=== PATIENT | male | born 1990 | race Caucasian/White ===

== ENCOUNTER 2023-09-22 11:54 | Inpatient (IN) | payer MEDICAID ==
[~2023-09-22] VITALS: Ht 182.9 cm; Wt 83.9 kg
[2023-09-22 11:56] VITALS: BP 122/72; PULSE 90; RESP 16; TEMP 97.1; O2SAT 98
[2023-09-22] MEDS ORDERED: IBUPROFEN 600 MG TAB PO ONE (13:00)
[2023-09-22 13:13] LABS: BASOPHILS % (AUTO) 0.3 % (0.0-2.0); EOSINOPHILS % (AUTO) 0.1 % (0.0-4.0); HEMATOCRIT 45.7 % (36-52); HEMOGLOBIN 15.5 g/dL (12.0-18.0); LYMPHOCYTES # (AUTO) 0.9 K/uL (2.0-11.5); LYMPHOCYTES % (AUTO) 9.2 % (20.5-51.1); MEAN CORPUSCULAR HEMOGLOBIN 28 pg (27-31); MEAN CORPUSCULAR HGB CONC 34 g/dL (33-37); MEAN CORPUSCULAR VOLUME 81.8 fL (80-94); MONOCYTES # (AUTO) 0.3 K/uL (0.8-1.0); MONOCYTES % (AUTO) 2.9 % (1.7-9.3); NEUTROPHILS # (AUTO) 8.5 K/uL (1.8-7.7); NEUTROPHILS % (AUTO) 87.5 % (42.2-75.2); PLATELET COUNT (AUTO) 256 K/uL (140-450); RED BLOOD CELL COUNT(AUTO) 5.59 MIL/uL (4.20-6.10); RED CELL DISTRIBUTION WIDTH 13.9 % (11.6-13.7); WHITE BLOOD COUNT (AUTO) 9.7 K/uL (4.8-10.8)
[2023-09-22 13:25] LABS: APPEARANCE,URINE CLEAR (CLEAR); BILIRUBIN,URINE NEGATIVE (NEGATIVE); BLOOD, URINE NEGATIVE (NEGATIVE); COLOR,URINE YELLOW (YELLOW); LEUKOCYTE ESTERASE ,URINE NEGATIVE (NEGATIVE); NITRITE, URINE NEGATIVE (NEGATIVE); PH,URINE 6.5 (5.0-9.0); PROTEIN,URINE NEGATIVE (NEGATIVE); UGLUCOSE NEGATIVE (NEGATIVE); UROBILINOGEN,URINE 0.2 EU/dL (0.2 - 1)
[2023-09-22 13:52] LABS: INR 0.99 (0.8-1.2); PARTIAL THROMBOPLASTIN TIME 30.8 secs (22-35.6); PROTHROMBIN TIME 10.4 secs (10.8-13.4)
[2023-09-22 14:23] LABS: LACTIC ACID 1.3 mmol/L (0.4-2.0)
[2023-09-22 14:43] LABS: ALBUMIN 3.5 g/dL (3.4-5.0); ANION GAP 12.2 (8-16); CALCIUM 8.9 mg/dL (8.5-10.1); CARBON DIOXIDE 27.8 mmol/L (21-32); TOTAL BILIRUBIN 0.6 mg/dL (0.0-1.0); TOTAL PROTEIN, SERUM 7.4 g/dL (6.4-8.2)
[2023-09-22] MEDS ORDERED: HYDROcodone/APAP 5/325 MG 1 TAB TAB PO PRN (22:00)
[2023-09-22] MEDS: MORPHINE SULFATE 2 MG/ML SYR IVP PRN (22:19)
[2023-09-22 23:20] VITALS: BP 131/84; PULSE 85; RESP 18; TEMP 97.8; O2SAT 98
[2023-09-23] MEDS: diphenhydrAMINE 50 MG/ML VIAL IVP PRN (00:11)
[2023-09-23] MEDS: MORPHINE SULFATE 2 MG/ML SYR IVP PRN (03:39)
[2023-09-23 04:00] VITALS: BP 137/76; PULSE 80; RESP 18; TEMP 97; O2SAT 98
[2023-09-23 07:55] LABS: BASOPHILS # (AUTO) 0.1 K/uL (0.00-0.22); BASOPHILS % (AUTO) 0.5 % (0.0-2.0); EOSINOPHILS % (AUTO) 0.4 % (0.0-4.0); HEMATOCRIT 45.7 % (36-52); HEMOGLOBIN 14.9 g/dL (12.0-18.0); LYMPHOCYTES # (AUTO) 1.8 K/uL (2.0-11.5); LYMPHOCYTES % (AUTO) 16.9 % (20.5-51.1); MEAN CORPUSCULAR HEMOGLOBIN 27 pg (27-31); MEAN CORPUSCULAR HGB CONC 33 g/dL (33-37); MEAN CORPUSCULAR VOLUME 82.7 fL (80-94); MONOCYTES % (AUTO) 9.3 % (1.7-9.3); NEUTROPHILS # (AUTO) 7.6 K/uL (1.8-7.7); NEUTROPHILS % (AUTO) 72.9 % (42.2-75.2); PLATELET COUNT (AUTO) 241 K/uL (140-450); RED BLOOD CELL COUNT(AUTO) 5.53 MIL/uL (4.20-6.10); RED CELL DISTRIBUTION WIDTH 13.8 % (11.6-13.7); WHITE BLOOD COUNT (AUTO) 10.5 K/uL (4.8-10.8)
[2023-09-23 08:00] VITALS: BP 108/64; PULSE 75; PULSE 85; RESP 17; TEMP 97.5; O2SAT 97
[2023-09-23 08:18] LABS: ALBUMIN 3.1 g/dL (3.4-5.0); ANION GAP 10.4 (8-16); CALCIUM 8.6 mg/dL (8.5-10.1); CARBON DIOXIDE 31.6 mmol/L (21-32); CREATININE 1.1 mg/dL (0.6-1.3); TOTAL BILIRUBIN 0.6 mg/dL (0.0-1.0); TOTAL PROTEIN, SERUM 7.6 g/dL (6.4-8.2)
[2023-09-23 12:00] VITALS: BP 110/63; PULSE 78; RESP 18; TEMP 97.4; O2SAT 98
[2023-09-23] MEDS: ACETAMINOPHEN 325 MG TAB PO PRN ×2 (12:38→18:07)
[2023-09-23] MEDS ORDERED: DEXAMETHASONE 4 MG/ML VIAL IVP SCH (15:23)
[2023-09-23] MEDS ORDERED: DEXAMETHASONE 10 MG/ML VIAL IVP SCH (15:24)
[2023-09-23 16:37] VITALS: BP 121/69; PULSE 83; RESP 19; TEMP 99.7; O2SAT 98
[2023-09-23 19:49] VITALS: BP 114/69; PULSE 81; RESP 18; TEMP 97.3; O2SAT 97
[2023-09-23 21:27] VITALS: PULSE 81; RESP 16; O2SAT 97
[2023-09-24 04:00] VITALS: BP 124/74; PULSE 79; RESP 16; TEMP 97.6; O2SAT 98
[2023-09-24] MEDS ORDERED: LIDOCAINE MPF 1% 5 ML ONE (05:58)
[2023-09-24] MEDS ORDERED: LIDOCAINE MPF 1% 10 MG/ML VIAL INJ SCH (06:15)
[2023-09-24 07:12] LABS: ALBUMIN 3.3 g/dL (3.4-5.0); ANION GAP 13.1 (8-16); CALCIUM 9.3 mg/dL (8.5-10.1); CARBON DIOXIDE 28.9 mmol/L (21-32); CREATININE 0.9 mg/dL (0.6-1.3); TOTAL BILIRUBIN 0.5 mg/dL (0.0-1.0); TOTAL PROTEIN, SERUM 7.6 g/dL (6.4-8.2)
[2023-09-24 08:00] VITALS: BP 103/67; PULSE 79; RESP 17; TEMP 98.2; O2SAT 96; O2SAT 98
[2023-09-24 09:05] LABS: BASOPHILS % (AUTO) 0.1 % (0.0-2.0); HEMATOCRIT 47.9 % (36-52); LYMPHOCYTES # (AUTO) 1.8 K/uL (2.0-11.5); LYMPHOCYTES % (AUTO) 17.7 % (20.5-51.1); MEAN CORPUSCULAR HEMOGLOBIN 28 pg (27-31); MEAN CORPUSCULAR HGB CONC 33 g/dL (33-37); MEAN CORPUSCULAR VOLUME 82.5 fL (80-94); MONOCYTES # (AUTO) 0.4 K/uL (0.8-1.0); MONOCYTES % (AUTO) 4.4 % (1.7-9.3); NEUTROPHILS # (AUTO) 7.9 K/uL (1.8-7.7); NEUTROPHILS % (AUTO) 77.8 % (42.2-75.2); PLATELET COUNT (AUTO) 275 K/uL (140-450); RED BLOOD CELL COUNT(AUTO) 5.81 MIL/uL (4.20-6.10); RED CELL DISTRIBUTION WIDTH 14.2 % (11.6-13.7); WHITE BLOOD COUNT (AUTO) 10.1 K/uL (4.8-10.8)
[2023-09-24 09:07] LABS: ANTI-NUCLEAR ANTIBODY,DIRECT Negative (Negative)
[2023-09-24] MEDS ORDERED: NON ADHERENT DRESSING TP PRN (10:45)
[2023-09-24] MEDS: NON ADHERENT DRESSING TP SCH (13:00)
[2023-09-24] MEDS: MORPHINE SULFATE 2 MG/ML SYR IVP PRN (14:22)
[2023-09-24 15:17] VITALS: O2SAT 97
[2023-09-24 20:00] VITALS: BP 120/64; PULSE 81; RESP 18; TEMP 97.3; O2SAT 96
[2023-09-24] MEDS: diphenhydrAMINE 50 MG/ML VIAL IVP PRN (21:00)
[2023-09-24] MEDS: ACETAMINOPHEN 325 MG TAB PO PRN (21:09)
[2023-09-25 04:00] VITALS: BP 118/77; PULSE 75; RESP 18; TEMP 97.6; O2SAT 96
[2023-09-25] MEDS: diphenhydrAMINE 50 MG/ML VIAL IVP PRN (05:14)
[2023-09-25] MEDS: ACETAMINOPHEN 325 MG TAB PO PRN (05:16)
[2023-09-25 06:06] LABS: BASOPHILS # (AUTO) 0.1 K/uL (0.00-0.22); BASOPHILS % (AUTO) 0.7 % (0.0-2.0); EOSINOPHILS # (AUTO) 0.1 K/uL (0-0.4); EOSINOPHILS % (AUTO) 1.2 % (0.0-4.0); HEMATOCRIT 45.5 % (36-52); HEMOGLOBIN 15.4 g/dL (12.0-18.0); LYMPHOCYTES # (AUTO) 3.7 K/uL (2.0-11.5); LYMPHOCYTES % (AUTO) 37.5 % (20.5-51.1); MEAN CORPUSCULAR HEMOGLOBIN 28 pg (27-31); MEAN CORPUSCULAR HGB CONC 34 g/dL (33-37); MEAN CORPUSCULAR VOLUME 81.6 fL (80-94); MONOCYTES # (AUTO) 0.7 K/uL (0.8-1.0); MONOCYTES % (AUTO) 7.2 % (1.7-9.3); NEUTROPHILS # (AUTO) 5.2 K/uL (1.8-7.7); NEUTROPHILS % (AUTO) 53.4 % (42.2-75.2); PLATELET COUNT (AUTO) 270 K/uL (140-450); RED BLOOD CELL COUNT(AUTO) 5.57 MIL/uL (4.20-6.10); RED CELL DISTRIBUTION WIDTH 14.2 % (11.6-13.7); WHITE BLOOD COUNT (AUTO) 9.8 K/uL (4.8-10.8)
[2023-09-25 06:08] LABS: HEPATITIS A ANTIBODY IGM Negative (Negative); HEPATITIS B CORE AB TOTAL Negative (Negative); HEPATITIS B CORE, IGM Negative (Negative); HEPATITIS B SURFACE ANTIBODY Non Reactive (.); HEPATITIS B SURFACE ANTIGEN Negative (Negative); HEPATITIS C VIRUS ANTIBODY Non Reactive (Non Reactive)
[2023-09-25 06:31] LABS: ANION GAP 9.4 (8-16); CALCIUM 8.6 mg/dL (8.5-10.1); CARBON DIOXIDE 31.3 mmol/L (21-32); CREATININE 1.1 mg/dL (0.6-1.3); POTASSIUM 3.7 mmol/L (3.5-5.1); TOTAL BILIRUBIN 0.5 mg/dL (0.0-1.0); TOTAL PROTEIN, SERUM 7.7 g/dL (6.4-8.2)
[2023-09-25 08:00] VITALS: PULSE 79; RESP 19; O2SAT 99
[2023-09-25 08:44] LABS: HEPATITIS A ANTIBODY TOTAL Positive (Negative)
[2023-09-25] MEDS ORDERED: PRED20TA5 PO (11:53)
[2023-09-25] MEDS ORDERED: PANT40EC PO (11:53)
[2023-09-25] MEDS: NON ADHERENT DRESSING TP SCH (13:00)
[2023-09-25 15:53] VITALS: BP 118/77; PULSE 75; RESP 18; TEMP 97.6
[2023-09-26] MEDS ORDERED: DIPH25TA53 PO (21:18)
[2023-09-26] MEDS ORDERED: ACET-8905 PO (21:18)
[2023-09-28 10:01] LABS: ANTINUETROPHIL CYTOPLASMIC AB <1:20 titer (Neg:<1:20)
[2023-10-01] MEDS ORDERED: ACET-8905 PO (18:35)
== END 2023-09-25 16:25 | disposition home or self-care (01) | DRG 346 ==
LOC: MED 11:54 → MMU 16:12 → MTU 22:20
PROVIDERS: ADMIT Family Medicine; ATTEND Family Medicine
PROC: 0HBLXZX Excision of Left Lower Leg Skin, External Approach, Diagnostic (ICD-10-PCS; principal; 2023-09-24)
DX: M31.0 Hypersensitivity angiitis (principal); M35.9 Systemic involvement of connective tissue, unspecified; R74.01 Elevation of levels of liver transaminase levels; X58.XXXA Exposure to other specified factors, initial encounter; Y93.89 Activity, other specified; Y92.89 Other specified places as the place of occurrence of the external cause; Y99.8 Other external cause status
CPT/HCPCS: 36415; 71045; 80053; 81003; 83605; 85025; 85379; 85384; 85610; 85651; 85730; 86038; 86592; 86694; 86704; 86706; 86708; 86709; 86803; 87040; 87081; 87340; 87491; 88305; 93970; 99285; J1100; J1200; J2001; J2270; Q0092; Q0163

== ENCOUNTER 2023-09-26 19:04 | Emergency (ER) | payer MEDICAID ==
[~2023-09-26] VITALS: Ht 177.8 cm; Wt 83.0 kg
[~2023-09-26 19:04] MED LIST: PANT40EC PO; PRED20TA5 PO
[2023-09-26 19:06] VITALS: BP 131/82; PULSE 116; RESP 16; TEMP 97.8; O2SAT 97
[2023-09-26] MEDS ORDERED: HYDROcodone/APAP 7.5/325 MG 1 TAB PO ONE (21:00)
[2023-09-26] MEDS ORDERED: DIPH25TA53 PO (21:18)
[2023-09-26] MEDS ORDERED: ACET-8905 PO (21:18)
[2023-10-01] MEDS ORDERED: ACET-8905 PO (18:35)
== END 2023-09-26 22:06 | disposition home or self-care (01) ==
LOC: MED 19:04
DX: R21 Rash and other nonspecific skin eruption (principal); M79.10 Myalgia, unspecified site; R03.0 Elevated blood-pressure reading, without diagnosis of hypertension; Z79.899 Other long term (current) drug therapy
CPT/HCPCS: 99283; Q0163